=== PATIENT | male | born 1940 | race Caucasian/White ===

== ENCOUNTER 2024-09-29 01:39 | Emergency (ER) | payer MEDICARE, SELFPAY ==
[2024-09-29 01:40] VITALS: BMI 27.1
[2024-09-29 01:50] VITALS: BP 133/52; PULSE 68; RESP 19; TEMP 37.1; O2SAT 96
--- NOTE | 2024-09-29 02:23 | XR_ITS ---
Examination: CT pelvis left hip, without contrast. 2-D sagittal reconstructions. 2-D coronal reconstructions. 3-D reconstructions. Date and time of exam:September 29, 2024 0258 hours INDICATIONS: Left hip pain beginning one month ago CTDI: vol (mGy):8.25 DLP: (mGycm):273 Technique: Multiple 1.25 mm axial sections of the pelvis left hip have been obtained. 2-D sagittal and coronal reconstructions have been obtained. 3-D reconstructions have been obtained. Low dose protocols were performed. One or more of the following dose reduction techniques were used; automated exposure control, adjustment of the mA and/or KV according to patient size, use of iterative reconstruction technique. Findings: Bones of the pelvis intact including acetabular regions and anterior rami No hip fractures or hip dislocations Moderate bilateral hip osteoarthritis Marked prostatomegaly, transverse dimension 8 cm Left inguinal hernia contains bowel but no incarcerated bowel IMPRESSION: Moderate bilateral hip osteoarthritis Massive prostatomegaly Left inguinal hernia containing small bowel but no incarcerated bowel
--- NOTE | 2024-09-29 02:23 | XR_ITS ---
Examination: CT lumbar spine, without contrast. 2-D sagittal reconstructions. 2-D coronal reconstructions. 3-D reconstructions. Date and time of exam: September 29, 2024, 0305 hours INDICATIONS: Back pain beginning one month ago CTDI: vol (mGy):23.1 DLP: (mGycm):726 Technique: Multiple 1.25 mm axial sections of the lumbar spine without intravenous contrast have been obtained. 2-D sagittal and coronal reconstructions have been obtained. 3-D reconstructions have been obtained. Low dose protocols were performed. One or more of the following dose reduction techniques were used; automated exposure control, adjustment of the mA and/or KV according to patient size, use of iterative reconstruction technique. Findings: Adequate alignment lumbar vertebral bodies on the lateral view No acute lumbar fracture Advanced disc narrowing L3-L4, L4-L5 L5-S1 3 mm central lumbar disc bulge L4-L5 moderate overall spinal stenosis, 4 mm central lumbar disc bulge facet arthropathy and thickening of the ligamentum flavum with mild bilateral L4 ganglionic compression L3-L4 no disc protrusion L2-L3 no disc protrusion L1-L2 no disc protrusion IMPRESSION: No lumbar fracture. Advanced degenerative disc disease L3-L4, L4-L5 L5-S1 3 mm on the lumbar disc bulge L4-L5 moderate overall spinal stenosis, 4 mm simple lumbar disc bulge and prominent facet arthropathy with mild bilateral L4 ganglionic compression
--- NOTE | 2024-09-29 04:11 | PRELIM_ITS ---
Left hip CT without intravenous contrast (axial images with coronal and sagittal reconstructions). Clinical history: Pain; previous injury Findings: No acute fracture is identified. Joint alignment is normal. Nonobstructed small bowel is present in a left inguinal hernia. Prostate is enlarged, 8 cm in diameter. Lumbar spondylosis. Impression: No acute process. Chronic findings as above. Report Electronically Signed By: Jesu Law 09/29/2024 4:11:05 AM [EST]
--- NOTE | 2024-09-29 04:13 | PRELIM_ITS ---
CT scan of the lumbar spine without contrast (entire l-spine, axial sections with sagittal and coronal reformats). Clinical history: Pain; previous injury Findings: There is no acute lumbar fracture or traumatic subluxation. Diffuse disc space narrowing and spondylosis. Chronic compression fractures of T11 and T12. The paravertebral soft tissues are unremarkable. Impression: No evidence of acute lumbar fracture or traumatic subluxation. Report Electronically Signed By: Jesu Law 09/29/2024 4:13:01 AM [EST]
[2024-09-29 04:54] VITALS: BP 145/67; PULSE 87; RESP 19; TEMP 36.7; O2SAT 99
[2024-09-29] MEDS: CYCLObenzaPRINE 5 MG TABLET PO (05:44)
[2024-09-29] MEDS: ACETAMINOPHEN 500 MG TABLET 1000 MG PO (05:45)
--- NOTE | 2024-09-29 06:09 | PD.EDHIP ---
Lower Extremity Injury RME/HPI General Chief Complaint: Hip Injury/Pain Stated Complaint: LEFT HIP PAIN Time Seen by Provider: 09/29/24 02:23 Arrival date/time: 09/29/24 01:39 83M with history of HTN, TIA, and BPH presents to ED with 1 week of intermittent but worsening L lower back pain. Patient may have injured it several weeks ago, but denies outright falling on it. Patient denies CP, SOB, dysuria/hematuria, N/V, bowel/bladder incontinence, and paresthesia. Pain does not radiate into LLE. Patient does have a known L inguinal hernia that has gotten worse in the past few weeks. Pain is worse with certain movements/positions. Limitations: no limitations Related Data Home Medications ?Medication ?Instructions ?Recorded ?Confirmed amlodipine 5 mg tablet 5 mg PO QDAY 12/16/17 02/06/19 oxybutynin chloride 5 mg tablet 5 mg PO BID 12/16/17 02/06/19 simvastatin 40 mg tablet 40 mg PO QPM 12/16/17 02/06/19 allopurinol 300 mg tablet 300 mg PO QDAY 07/30/18 02/06/19 tamsulosin 0.4 mg capsule 0.4 mg PO QDAY 07/30/18 02/06/19 finasteride 5 mg tablet (Proscar) 5 mg PO QDAY 12/20/18 02/06/19 Previous Rx's ?Medication ?Instructions ?Recorded clopidogrel 75 mg tablet (Plavix) 75 mg PO QDAY #30 tabs 12/17/17 acetaminophen 500 mg capsule 1,000 mg (2 x 500 mg) PO Q6H PRN 09/29/24 pain #30 caps cyclobenzaprine 5 mg tablet 5 mg PO BID PRN muscle spasm #10 09/29/24 tabs oxycodone 5 mg capsule 5 mg PO BID pain 3 days #7 caps 09/29/24 Allergies Allergy/AdvReac Type Severity Reaction Status Date / Time No Known Allergies Allergy Verified 09/21/23 12:51 Review of Systems Review of Systems Systems Reviewed: All systems reviewed, normal except as documented Constitutional Constitutional: Reports system reviewed and no additional complaints, except as documented, Denies fever(s) and Denies headache(s) ENT Ears, Nose, Mouth, and Throat: Denies disequilibrium and Denies headache(s) Cardiovascular Cardiovascular: Reports system reviewed and no additional complaints, except as documented, Denies chest pain and Denies dyspnea Respiratory Respiratory: Reports system reviewed and no additional complaints, except as documented, Denies cough and Denies dyspnea Gastrointestinal Gastrointestinal: Reports system reviewed and no additional complaints, except as documented, Denies abdominal pain, Denies nausea and Denies vomiting Musculoskeletal Musculoskeletal: Reports as per HPI, Reports arthralgias and Reports back pain Neurologic Neurologic: Reports system reviewed and no additional complaints, except as documented, Denies confusion, Denies disequilibrium and Denies headache(s) Psychiatric Psychiatric: Denies confusion Past Medical History Past Medical History NEUROLOGIC: 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) CARDIAC: Positive Cardiac Disorders, Hypercholesterolemia and Hypertension; Negative Congestive Heart Failure RESPIRATORY: Negative Chronic Obstructive Pulmonary Disease (COPD) or Asthma GENITOURINARY: Positive Genitourinary Disorders and Benign Prostatic Hyperplasia; Negative Renal Disease ENDOCRINE: Negative Diabetes Mellitus Type 1 or Diabetes Mellitus Type 2 HEMATOLOGIC: Negative Sickle Cell Disease Family History FAMILY HISTORY: Negative Family Neurologic Problems, Family Psychiatric Problems, Family Respiratory Disorders, Family Cardiac Disorders, Family Gastrointestinal Problems, Family Cancer, Family Surgery or Family Anesthesia Reaction Surgical History SURGICAL: Positive Tonsillectomy Social History SMOKING STATUS: Never smoker SECOND HAND EXPOSURE: No SUBSTANCE USE: does not use ED Exam General Limitations: Present no limitations General appearance: Present alert and in no apparent distress Head Head exam: Present atraumatic Eye Eye exam: Present normal appearance, PERRL and EOMI ENT ENT exam: Present normal exam, normal oropharynx and mucous membranes moist Neck Neck exam: Present normal inspection, full ROM and trachea midline Chest Chest inspection: Present normal inspection and symmetric chest wall rise Respiratory Respiratory exam: Present normal lung sounds bilaterally Cardiovascular Cardiovascular exam: Present regular rate, normal rhythm and normal heart sounds Abdominal Exam Abdominal exam: Present soft and normal bowel sounds Extremities Exam Extremities exam: Present normal inspection and full ROM Back Exam Back exam: Present normal inspection and full ROM Neurological Exam Neurological exam: Present alert, oriented X3 and CN II-XII intact Psychiatric Psychiatric exam: Present normal affect and normal mood Skin Skin exam: Present warm, dry, intact and normal color Course Quality Measures none Orders Category Date Time Status CT hip LT wo con Stat Exams 09/29/24 02:[address] lumbar spine wo con Stat Exams 09/29/24 02:23 Taken Acetaminophen Tab [Tylenol ES Tab] Med 09/29/24 05:37 Discontinued 1,000 mg PO X1 ONE CYCLObenzaPRINE [Flexeril] Med 09/29/24 04:56 Discontinued 5 mg PO X1 ONE Morphine Inj Med 09/29/24 04:56 Discontinued 5 mg IM X1 ONE Vital Signs Vital signs: Vital Signs Temperature 98.8 F 09/29/24 01:50 Pulse Rate 68 09/29/24 01:50 Respiratory Rate 19 09/29/24 01:50 Blood Pressure 133/52 H 09/29/24 01:50 Pulse Oximetry (%) 96 09/29/24 01:50 Oxygen Delivery Method Room Air 09/29/24 01:50 O2 at 96% on RA and WNLs Extremity Injury, Lower MDM Narrative MDM Narrative:: 83M with history of HTN, TIA, and BPH presents to ED with 1 week of intermittent but worsening L lower back pain. Patient may have injured it several weeks ago, but denies outright falling on it. Patient denies CP, SOB, dysuria/hematuria, N/V, bowel/bladder incontinence, and paresthesia. Pain does not radiate into LLE. Patient does have a known L inguinal hernia that has gotten worse in the past few weeks. Pain is worse with certain movements/positions. Physical exam reveals no L hip tenderness, though patient is unable to bear much weight on LLE. No midline back tenderness. Patient is afebrile, calm, and alert. CT reveals no acute abnormalities except for unobstructed small bowel in L inguinal hernia. With grants assistant present, L inguinal hernia was easily reduced, but did not change symptoms. Spoke to attending, Dr. Raphael, who also evaluation the patient and agrees symptoms are likely MSK/nerve-related. Meds and grief counselor given. Patient data External records reviewed:: [facility] previous records Clinical information provided by:: patient Social determinants that could affect healthcare access:: none Patient has the following chronic illnesses:: HTN, TIA, and BPH How is presenting disease/condition affected by chronic disease/condition?: exacerbated by Evaluation data The following diagnostics were reviewed and interpreted by me:: radiology exam(s) Lab and/or radiology exams considered but not ordered:: ordered Interpretation Summary: above Medications / Prescriptions Medications or Prescriptions considered but not ordered:: ordered Medication administrations:: Medication Administration History Discontinued Medications Acetaminophen (Acetaminophen 500 Mg Tablet) 1,000 mg PO X1 ONE Stop: 09/29/24 05:38 Last Admin: 09/29/24 05:45 Dose: 1,000 mg Documented By: EE Cyclobenzaprine HCl (Cyclobenzaprine 5 Mg Tablet) 5 mg PO X1 ONE Stop: 09/29/24 04:57 Last Admin: 09/29/24 05:44 Dose: 5 mg Documented By: EE Morphine Sulfate (Morphine Sulf Inj 10 Mg/Ml Vial) 5 mg IM X1 ONE Stop: 09/29/24 04:57 Last Admin: 09/29/24 05:48 Dose: Not Given Documented By: KESHAWN Non-Admin Reason: Patient Refused above Consultations Consultation(s) initiated? (list below): No Diagnosis Extremity Injury, Lower Differential Diagnosis: ankle sprain and strain, acute internal derangement of knee, fracture of femur, fracture of hip, puncture wound of foot, fracture of toe, ankle fracture and other (back pain) Most likely diagnosis given after review of the tests above:: back pain Admission Indicated Admission indicated?: not indicated Admission Request Was there a request for admission?: No Disposition Plan Disposition Plan: Discharge Discharge Attestation Discharge Attestation: The patient and all family members were given an opportunity to ask questions and understood the discharge instructions. Discharge instructions specifically effects, indications for sooner follow up or return to the emergency department, and the expected course of current diagnosis. Patient condition: Stable Discharge Plan Plan Patient Disposition: HOME (Self Care) Disposition Comment: Stable Prescriptions/Referrals Prescriptions/Med Rec: New cyclobenzaprine 5 mg tablet 5 mg PO BID PRN (Reason: muscle spasm) Qty: 10 0RF acetaminophen 500 mg capsule 1,000 mg PO Q6H PRN (Reason: pain) Qty: 30 0RF oxycodone 5 mg capsule 5 mg PO BID MDD 2 caps 3 Days Qty: 7 0RF No Action finasteride [Proscar] 5 mg tablet 5 mg PO QDAY tamsulosin 0.4 mg Capsule 0.4 mg PO QDAY allopurinol 300 mg Tablet 300 mg PO QDAY amlodipine 5 mg Tablet 5 mg PO QDAY simvastatin 40 mg Tablet 40 mg PO QPM oxybutynin chloride 5 mg Tablet 5 mg PO BID clopidogrel [Plavix] 75 mg Tablet 75 mg PO QDAY Qty: 30 0RF Referrals: Junaid Garibay MD [Primary Care Provider] - In 1 week Problem List Clinical Impression: Back pain Patient/Caregiver Discharge Instructions Education Materials: ED Back Pain (Acute or Chronic) Additional Instructions: Please follow-up with PCP within 24-48 hours and return immediately if symptoms worsen. If problem persists, recommend outpatient PT and/or MRI follow-up. In the meantime, rest, use ice/heat, and/or compression. Print Language: Tajik Stand Alone Forms: Patient Portal Info Letter PA/HARRIET Supervising Physician BRUNILDA/HARRIET Supervising Physician: Dr. Raphael
== END 2024-09-29 05:55 | disposition home or self-care (01) ==
PROVIDERS: Emergency Provider Emergency Medicine; PCP Family Medicine
DX: K40.90 Unilateral inguinal hernia, without obstruction or gangrene, not specified as recurrent (principal); M54.50 Low back pain, unspecified
CPT/HCPCS: 72131; 73700; 99284; J2270; A9270

== ENCOUNTER → 2025-01-30 | Outpatient (CLI) | payer MEDICARE, SELFPAY ==
[2025-01-30 09:19] LABS: Collection Type, Urine Clean Catch
[2025-01-30 09:50] LABS: Basophils # (Auto) 0.0 Thou/mm3 (0.0-0.2); Basophils % (Auto) 0 % (0-2.5); Eosinophils # (Auto) 0.1 Thou/mm3 (0.0-0.5); Eosinophils % (Auto) 1 % (0-10); Hematocrit 41.7 % (41.0-53.0); Hemoglobin 14.0 g/dL (13.5-16.0); Immature Granulocytes Auto 0.03 Thou/mm3 (0.00-0.00); Lymphocytes # (Auto) 1.2 Thou/mm3 (1.0-4.8); Lymphocytes % (Auto) 16 % (10-50); Mean Corpuscular HGB Conc 33.6 g/dl (31.0-37.0); Mean Corpuscular Hemoglobin 31.8 pg (25.0-35.0); Mean Corpuscular Volume 95 fL (80-100); Monocytes # (Auto) 0.5 Thou/mm3 (0.0-0.8); Monocytes % (Auto) 7 % (0-12); Neutrophils # (Auto) 5.7 Thou/mm3 (1.8-7.7); Neutrophils % (Auto) 75 % (37-80); Nucleated Red Blood Cell # 0.00 Thou/mm3 (0.00-0.00); Nucleated Red Blood Cell % 0 /100 WBC (0); Platelet Count 170 Thou/mm3 (140-440); RDW Standard Deviation 44.0 fL (35.1-43.9); Red Blood Count 4.40 Miln/mm3 (4.50-5.90); White Blood Count 7.6 Thou/mm3 (3.8-10.6)
[2025-01-30 10:02] LABS: Prostate Specific Antigen 5.57 ng/mL (0-4.00)
[2025-01-30 10:03] LABS: Bilirubin,Urine Negative (Negative); Blood,Urine Negative (Negative); Clarity,Urine Clear (Clear/Hazy); Color,Urine Yellow (Lt Yel-Yel); Culture Indicated,Urine Not Indicated; Glucose, Urine Negative (Negative); Ketones,Urine Negative (Negative); Leukocyte Esterase,Urine Negative (Negative); Nitrite,Urine Negative (Negative); PH,Urine 5.5 (5.0-7.0); Protein,Urine Negative (Neg - Trace); RBC,Urine 1 /hpf (0-3); Specific Gravity,Urine 1.016 (1.001-1.035); Squamous Epithelial Cell,Urine < 1 /hpf (0-5); Urobilinogen,Urine Negative mg/dL (0.0-1.0); WBC,Urine 1 /hpf (0-5)
[2025-01-30 10:13] LABS: Alanine Aminotransferase 8 U/L (10-49); Albumin, Serum 4.2 gm/dL (3.4-4.8); Albumin/Globulin Ratio 2.6 (1.2-2.2); Alkaline Phosphatase 85 U/L (46-116); Anion Gap 7 (7-16); Aspartate Amino Transferase 12 U/L (0-34); BUN/Creatinine Ratio 16 Ratio (12-20); Bilirubin,Total 0.7 mg/dL (0.3-1.2); Blood Urea Nitrogen 18 mg/dL (9-23); Calcium 9.9 mg/dL (8.3-10.6); Calcium (Corrected) 9.9 mg/dL (8.5-10.1); Carbon Dioxide 26.8 mMol/L (20.0-31.0); Cardiac Risk Estimate 3.1 RATIO (4.0-6.7); Chloride 107 mMol/L (98-107); Cholesterol 156 mg/dL (132-200); Creatinine (Component) 1.1 mg/dL (0.6-1.3); Globulin 1.6 gm/dL (2.3-3.5); Glucose 92 mg/dL (74-106); HDL Cholesterol 50 mg/dL (40-60); LDL Cholesterol,Calculated 97 mg/dL (0-130); Osmolality,Calculated 283 (275-295); Potassium 4.0 mMol/L (3.4-5.1); Sodium 141 mMol/L (136-145); Thyroid Stimulating Hormone 1.11 uIU/mL (0.55-4.78); Total Protein 5.8 gm/dL (5.7-8.2); Triglycerides 46 mg/dL (30-150); eGFR > 60 See Note
[2025-01-30 10:27] LABS: Vitamin B12 519 pg/mL (211-911)
== END | disposition home or self-care (01) ==
PROVIDERS: PCP Family Medicine; Referring Provider Physician Assistant; Visit Provider Physician Assistant
DX: I10 Essential (primary) hypertension (principal); E55.9 Vitamin D deficiency, unspecified; E66.3 Overweight; E78.5 Hyperlipidemia, unspecified; I63.40 Cerebral infarction due to embolism of unspecified cerebral artery; M10.9 Gout, unspecified; N32.81 Overactive bladder; N40.1 Benign prostatic hyperplasia with lower urinary tract symptoms; R97.20 Elevated prostate specific antigen [PSA]
CPT/HCPCS: 36415; 80053; 80061; 81001; 82607; 84153; 84443; 85025

== ENCOUNTER 2025-02-08 09:24 | Inpatient (IN) | payer MEDICARE, SELFPAY ==
[2025-02-08] VITALS (12 sets, daily range): BP systolic 118–152; BP diastolic 66–77; PULSE 52–67; RESP 15–98; TEMP 36.2–37.2; O2SAT 92–99; BMI 28.5
--- NOTE | 2025-02-08 | XR_ITS ---
Examinations: MRI Brain without intravenous contrast. MRA brain without intravenous contrast. MRA carotids without intravenous contrast 3-D vascular reconstructions Date and time of exam: February 08, 2025, [address] stroke alert this morning, onset focal neurologic deficit including slurred speech Technique: Multiple axial and sagittal images of the brain have been obtained MRA brain carotid images without contrast obtained, including 3-D postprocessing, vascular maximum intensity projection images Findings: Sellaturcica is not enlarged. The optic chiasm and infundibular stalk are not remarkable. Prepontine and interpeduncular cisterns are not enlarged. No localized enlargement of the medulla or jairo. Fourth ventricle and cerebellar tonsils normal in position. Subacute hemorrhage is not seen. Fourth ventricle is midline. Mass in the cerebellopontine angle region is not evident. 7th and 8th nerve complexes exhibits symmetry. Globes are symmetrical with no retro-orbital mass. Increased white matter signal prominent in the frontal lobes with encephalomalacia Diffusion-weighted images demonstrate no focus of restricted diffusion Mass-effect upon the ventricular system is not identified. MRA brain images no large vessel occlusions Impression: Negative for acute hemorrhage mass effect or midline shift No acute infarct Prominent chronic microvascular white matter change including bifrontal encephalomalacia
--- NOTE | 2025-02-08 09:35 | XR_ITS ---
Examination: CTA carotids with intravenous contrast CTA brain, head with intravenous contrast. 2-D sagittal, coronal reconstructions. 3-D reconstructions. Exam date and time: February 08, 2025, 1003 hours INDICATIONS: Stroke alert, onset focal neurologic deficit today, including slurred speech CTDI: vol (mGy) 23.6 DLP: (mGycm) 470 Technique: Multiple CTA axial brain, head carotid images post intravenous contrast injection 75 cc, [id number]. 2-D sagittal, coronal reconstructions. 3-D reconstructions, 3-D post processing including vascular maximum intensity projection images. Low dose protocols were performed. One or more of the following dose reduction techniques were used; automated exposure control, adjustment of the mA and/or KV according to patient size, use of iterative reconstruction technique. Findings: Bilateral thyromegaly with tiny bilateral subcentimeter thyroid nodules No significant common carotid carotid bifurcation or internal carotid artery stenoses Dominant left vertebral artery in the neck, no vertebral artery stenoses Intracranial vertebral arteries intact Basilar artery posterior cerebral branches fill with no large vessel occlusions Juxtasellar or supracondylar portions internal carotid arteries M1 segments middle cerebral arteries middle cerebral artery trifurcation vessels anterior cerebral arteries fill with no large vessel occlusions. IMPRESSION: No significant neck arterial stenoses No cerebral large vessel arterial occlusions.
--- NOTE | 2025-02-08 09:35 | XR_ITS ---
Examination: CT brain head without contrast. 2-D sagittal coronal reconstructions Date and time of exam:February 08, 2025, 0943 hours INDICATIONS: Stroke alert, onset slurred speech beginning this morning COMPARISON: April 05, 2024 CTDI: vol (mGy):55 DLP: (mGycm):1164 Technique: Multiple CT axial sections of the brain have been obtained, 5 mm slice thickness. Contrast has not been administered. 2-D sagittal, coronal reconstructions have been obtained Low dose protocols were performed. One or more of the following dose reduction techniques were used; automated exposure control, adjustment of the mA and/or KV according to patient size, use of iterative reconstruction technique. Findings: No significant ventricular enlargement. Again noted bifrontal encephalomalacia Intra-axial or extra-axial hemorrhage density is not seen. No mass effect or midline shift Basal cisterns are not remarkable. Fourth ventricle is midline. Cranial vault intact. Impression: No interval acute hemorrhage, mass effect or midline shift
[2025-02-08 09:46] LABS: Basophils # (Auto) 0.0 Thou/mm3 (0.0-0.2); Basophils % (Auto) 0 % (0-2.5); Eosinophils # (Auto) 0.1 Thou/mm3 (0.0-0.5); Eosinophils % (Auto) 1 % (0-10); Hematocrit 44.0 % (41.0-53.0); Hemoglobin 15.0 g/dL (13.5-16.0); Immature Granulocytes Auto 0.03 Thou/mm3 (0.00-0.00); Lymphocytes # (Auto) 1.3 Thou/mm3 (1.0-4.8); Lymphocytes % (Auto) 14 % (10-50); Mean Corpuscular HGB Conc 34.1 g/dl (31.0-37.0); Mean Corpuscular Hemoglobin 32.6 pg (25.0-35.0); Mean Corpuscular Volume 96 fL (80-100); Monocytes # (Auto) 0.6 Thou/mm3 (0.0-0.8); Monocytes % (Auto) 7 % (0-12); Neutrophils # (Auto) 7.1 Thou/mm3 (1.8-7.7); Neutrophils % (Auto) 77 % (37-80); Nucleated Red Blood Cell # 0.00 Thou/mm3 (0.00-0.00); Nucleated Red Blood Cell % 0 /100 WBC (0); Platelet Count 206 Thou/mm3 (140-440); RDW Standard Deviation 44.3 fL (35.1-43.9); Red Blood Count 4.60 Miln/mm3 (4.50-5.90); White Blood Count 9.2 Thou/mm3 (3.8-10.6)
--- NOTE | 2025-02-08 09:55 | PD.EDNEURO ---
Neuro Symptoms Deficit-RME/HPI General Chief Complaint: Neuro Symptoms/Deficit Stated Complaint: SLURRED SPEECH SINCE 30 MINS AGO Time Seen by Provider: 02/08/25 09:34 Arrival date/time: 02/08/25 09:24 Limitations: no limitations RME / HPI RME / HPI Narrative: 84 year old male with history of TIAs, hypertension presents to the ED brought in by for evaluation of aphasia beginning this morning. reports the patient woke up at 08:00 AM today and was at his usual state of health. Reportedly went out to feed the horses and once he returned back inside at ~ 08:20 AM, noted the aphasia. Described the patient speaking a foreign language . states the patient has experienced 4 other TIAs that usually resolve after 1 hour. However, symptoms today are prolonged, prompting ED visit. Patient states since arriving to the ED his speech is improved. Denies falling, head injury/trauma, LOC, double vision, unilateral weakness, or changes in gait. Denies fevers, chills, cough, shortness of breath, abdominal pain, n/v/d, or urinary symptoms. Related Data Home Medications ?Medication ?Instructions ?Recorded ?Confirmed amlodipine 5 mg tablet 5 mg PO QDAY 12/16/17 02/06/19 oxybutynin chloride 5 mg tablet 5 mg PO BID 12/16/17 02/06/19 simvastatin 40 mg tablet 40 mg PO QPM 12/16/17 02/06/19 allopurinol 300 mg tablet 300 mg PO QDAY 07/30/18 02/06/19 tamsulosin 0.4 mg capsule 0.4 mg PO QDAY 07/30/18 02/06/19 finasteride 5 mg tablet (Proscar) 5 mg PO QDAY 12/20/18 02/06/19 Previous Rx's ?Medication ?Instructions ?Recorded clopidogrel 75 mg tablet (Plavix) 75 mg PO QDAY #30 tabs 12/17/17 acetaminophen 500 mg capsule 1,000 mg (2 x 500 mg) PO Q6H PRN 09/29/24 pain #30 caps cyclobenzaprine 5 mg tablet 5 mg PO BID PRN muscle spasm #10 09/29/24 tabs Allergies Allergy/AdvReac Type Severity Reaction Status Date / Time No Known Allergies Allergy Verified 02/08/25 09:26 Review of Systems Review of Systems Systems Reviewed: All systems reviewed, normal except as documented Past Medical History Past Medical History NEUROLOGIC: 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) CARDIAC: Positive Cardiac Disorders, Hypercholesterolemia and Hypertension RESPIRATORY: Negative Chronic Obstructive Pulmonary Disease (COPD) or Asthma GENITOURINARY: Positive Genitourinary Disorders and Benign Prostatic Hyperplasia ENDOCRINE: Negative Diabetes Mellitus Type 1 or Diabetes Mellitus Type 2 HEMATOLOGIC: Negative Sickle Cell Disease Family History FAMILY HISTORY: Negative Family Neurologic Problems, Family Psychiatric Problems, Family Respiratory Disorders, Family Cardiac Disorders, Family Gastrointestinal Problems, Family Cancer, Family Surgery or Family Anesthesia Reaction Surgical History SURGICAL: Positive Tonsillectomy Social History SMOKING STATUS: Never smoker SECOND HAND EXPOSURE: No SUBSTANCE USE: does not use ED Exam General Limitations: Present no limitations General appearance: Present alert and in no apparent distress Head Head exam: Present atraumatic, normocephalic and normal inspection Eye Eye exam: Present normal appearance, PERRL and EOMI ENT ENT exam: Present normal exam, normal oropharynx and mucous membranes moist Neck Neck exam: Present normal inspection, full ROM and trachea midline Chest Chest inspection: Present normal inspection and symmetric chest wall rise Respiratory Respiratory exam: Present normal lung sounds bilaterally Cardiovascular Cardiovascular exam: Present regular rate, normal rhythm and normal heart sounds Abdominal Exam Abdominal exam: Present soft and normal bowel sounds Extremities Exam Extremities exam: Present normal inspection and full ROM Back Exam Back exam: Present normal inspection and full ROM Neurological Exam Neurological exam: Present alert, oriented X3 and other (word findings difficulty and mild expressive aphasia that improved while I was in the room, Speech was slow and impaired, no focal deficits, muscle strength 5/5 upper and lower extremities, no facial droop or abnormality with facial muscles ) Psychiatric Psychiatric exam: Present normal affect and normal mood Skin Skin exam: Present warm, dry, intact and normal color Course Quality Measures Suspected type of Stroke: TIA Last known well (date): 02/08/25 Last known well (time): 08:00 Tenecteplase given: Reason(s) TPA not given: Stroke severity too mild (non-disabling) not given stroke Orders Category Date Time Status Bedside Blood Glucose NOW Care 02/08/25 09:35 Active COVID-19 Screening Questionnaire NOW Care 02/08/25 12:00 Active COVID-19 Screening Questionnaire NOW Care 02/08/25 12:50 Active Vp Mobile Products NOW Care 02/08/25 09:35 Active Continuous Pulse Oximetry NOW Care 02/08/25 09:35 Completed Decision to Admit X1 Care 02/08/25 12:50 Active EKG (ED ONLY) *Do not use* NOW Care 02/08/25 11:55 Completed Insert IV NOW Care 02/08/25 09:35 Active NIH Stroke Scale [id number],QSHIFT Care 02/08/25 10:16 Active NIH Stroke Scale now Care 02/08/25 09:35 Active NPO NOW Care 02/08/25 09:35 Active Neuro Check Q15MIN Care 02/08/25 09:35 Active Nurse Swallow Screen x1 Care 02/08/25 09:35 Active Consult to Neurology / Tele-Neurology Routine Cons 02/08/25 09:[address] angio stroke protocol Stat Exams 02/08/25 09:[address] stroke protocol Stat Exams 02/08/25 09:35 Completed EKG (ED Only) Stat Exams 02/08/25 11:55 Draft Alcohol, Blood Medical Stat Lab 02/08/25 09:38 Completed B-Type Natriuretic Peptide Stat Lab 02/08/25 09:38 Completed CBC Stat Lab 02/08/25 09:38 Completed Comprehensive Metabolic Panel Stat Lab 02/08/25 09:38 Completed Drug Screen,Urine Stat Lab 02/08/25 12:43 Completed Magnesium Stat Lab 02/08/25 09:38 Completed Partial Thromboplastin Time Stat Lab 02/08/25 09:38 Completed Prothrombin Time with INR Stat Lab 02/08/25 09:38 Completed Troponin I Stat Lab 02/08/25 09:38 Completed Urinalysis Stat Lab 02/08/25 12:43 Completed Urine Culture Stat Lab 02/08/25 12:38 Received Aspirin Med 02/08/25 12:50 Discontinued 325 mg PO X1 ONE Labetalol IV [Trandate IV] Med 02/08/25 10:01 Active 10 mg IVP PRNMRX1 PRN Labetalol IV [Trandate IV] Med 02/08/25 10:01 Active 10 mg IVP PRNMRX1 PRN Nicardipine/Ns 20Mg Ivpb [Cardene Ivpb] Med 02/08/25 10:01 Discontinued 20 mg in 200 ml IV 5 mg/hr Sodium Chloride 0.9% 1000 ml [Ns] 1,000 ml Med 02/08/25 09:45 Active IV Q10H Tenecteplase Inj [TNKase Inj] Med 02/08/25 10:01 Discontinued 21.3 mg IV X1 ONE Oxygen Delivery NOW RT 02/08/25 09:35 Active Vital Signs Vital signs: Vital Signs Temperature 99.0 F 02/08/25 09:25 Pulse Rate 67 02/08/25 09:25 Respiratory Rate 17 02/08/25 09:25 Blood Pressure 118/70 02/08/25 09:25 Pulse Oximetry (%) 95 02/08/25 09:25 Oxygen Delivery Method Room Air 02/08/25 09:25 Pulse ox is 95% on room air which is adequate. Neuro Symptoms / Deficit MDM Narrative MDM Narrative:: Adri Mc am scribing for and in the presence of Dr. Hastings. Patient data External records reviewed:: [facility] previous records (I reviewed ED visit on 09/29/2024 ) Clinical information provided by:: patient and spouse Social determinants that could affect healthcare access:: none Patient has the following chronic illnesses:: HTN, TIAs How is presenting disease/condition affected by chronic disease/condition?: exacerbated by Evaluation data The following diagnostics were reviewed and interpreted by me:: lab results, radiology exam(s) and EKG tracing(s) (EKG @ 12:03 PM. Sinus bradycardia with first degree AV block, rate 55, no STEMI. ) Lab and/or radiology exams considered but not ordered:: None Interpretation Summary: Ordering Physician: Dom Hastings MD Date of Service: 02/08/25 Procedure(s): CT stroke protocol Accession Number(s): [id number] cc: Dom Hastings MD; Randolph Champion MD~ Examination: CT brain head without contrast. 2-D sagittal coronal reconstructions Date and time of exam:February 08, 2025, 0943 hours INDICATIONS: Stroke alert, onset slurred speech beginning this morning COMPARISON: April 05, 2024 CTDI: vol (mGy):55 DLP: (mGycm):1164 Technique: Multiple CT axial sections of the brain have been obtained, 5 mm slice thickness. Contrast has not been administered. 2-D sagittal, coronal reconstructions have been obtained Low dose protocols were performed. One or more of the following dose reduction techniques were used; automated exposure control, adjustment of the mA and/or KV according to patient size, use of iterative reconstruction technique. Findings: No significant ventricular enlargement. Again noted bifrontal encephalomalacia Intra-axial or extra-axial hemorrhage density is not seen. No mass effect or midline shift Basal cisterns are not remarkable. Fourth ventricle is midline. Cranial vault intact. Impression: No interval acute hemorrhage, mass effect or midline shift Dictated By: Randolph Champion MD Signed By: <Electronically signed by Randolph Champion MD in OV> 02/08/25 0947 Ordering Physician: Dmo Hastings MD Date of Service: 02/08/25 Procedure(s): CT angio stroke protocol Accession Number(s): [id number] cc: Dom Hastings MD; Randolph Champion MD~ Examination: CTA carotids with intravenous contrast CTA brain, head with intravenous contrast. 2-D sagittal, coronal reconstructions. 3-D reconstructions. Exam date and time: February 08, 2025, 1003 hours INDICATIONS: Stroke alert, onset focal neurologic deficit today, including slurred speech CTDI: vol (mGy) 23.6 DLP: (mGycm) 470 Technique: Multiple CTA axial brain, head carotid images post intravenous contrast injection 75 cc, [id number]. 2-D sagittal, coronal reconstructions. 3-D reconstructions, 3-D post processing including vascular maximum intensity projection images. Low dose protocols were performed. One or more of the following dose reduction techniques were used; automated exposure control, adjustment of the mA and/or KV according to patient size, use of iterative reconstruction technique. Findings: Bilateral thyromegaly with tiny bilateral subcentimeter thyroid nodules No significant common carotid carotid bifurcation or internal carotid artery stenoses Dominant left vertebral artery in the neck, no vertebral artery stenoses Intracranial vertebral arteries intact Basilar artery posterior cerebral branches fill with no large vessel occlusions Juxtasellar or supracondylar portions internal carotid arteries M1 segments middle cerebral arteries middle cerebral artery trifurcation vessels anterior cerebral arteries fill with no large vessel occlusions. IMPRESSION: No significant neck arterial stenoses No cerebral large vessel arterial occlusions. Dictated By: Randolph Champion MD Signed By: <Electronically signed by Randolph Champion MD in OV> 02/08/25 1028 Medications / Prescriptions Medications or Prescriptions considered but not ordered:: None Medication administrations:: Medication Administration History Acetaminophen (Acetaminophen 325 Mg Tablet) 650 mg PO Q6H PRN PRN Reason: Fever >101.5 and pain 1-3 Stop: 03/10/25 13:05 Aspirin (Aspirin Ec 81 Mg Tabec) 81 mg PO QDAY [facility] Stop: 03/11/25 08:59 Atorvastatin Calcium (Atorvastatin Calcium 20 Mg Tablet) 40 mg PO HS [facility] Stop: 03/10/25 20:59 Clopidogrel Bisulfate (Clopidogrel Bisulfate 75 Mg Tablet) 75 mg PO QDAY [facility] Stop: 03/10/25 13:29 Last Admin: 02/08/25 14:00 Dose: 75 mg Documented By: BY Finasteride (Finasteride 5 Mg Tablet) 5 mg PO QDAY [facility] Stop: 03/11/25 08:59 Heparin Sodium (Porcine) (Heparin Sod Inj 5000 Unit/Ml Vial) 5,000 unit SC Q12HR [facility] Stop: 02/22/25 20:59 Sodium Chloride (Ns) 1,000 mls @ 100 mls/hr IV Q10H [facility] Stop: 03/10/25 09:44 Last Admin: 02/08/25 10:30 Dose: 100 mls/hr Documented By: KM Magnesium Sulfate (Magnesium Sulfate Ivpb) 4 gm in 50 mls @ 12.5 mls/hr IV X1 ONE Stop: 02/08/25 17:30 Last Admin: 02/08/25 14:00 Dose: 12.5 mls/hr Documented By: BY Labetalol HCl (Labetalol Inj 5 Mg/Ml Vial 20 Ml) 10 mg IVP PRNMRX1 PRN PRN Reason: SBP > 185 mmHg and/or DBP > 110 Labetalol HCl (Labetalol Inj 5 Mg/Ml Vial 20 Ml) 10 mg IVP PRNMRX1 PRN PRN Reason: SBP > 180 mmHg or DBP > 105 Oxybutynin Chloride (Oxybutynin Chlor 5 Mg Tablet) 5 mg PO BID [facility] Stop: 03/10/25 20:59 Sennosides (Senna Tablet) 1 tab PO QDAY [facility]; Protocol Stop: 03/11/25 08:59 Tamsulosin HCl (Tamsulosin Hcl 0.4 Mg Capsule) 0.4 mg PO QDAY [facility] Stop: 03/11/25 08:59 Discontinued Medications Aspirin (Aspirin 325 Mg Tablet) 325 mg PO X1 ONE Stop: 02/08/25 12:51 Last Admin: 02/08/25 13:01 Dose: 325 mg Documented By: BY Nicardipine/Sodium Chloride (Cardene Ivpb) 20 mg in 200 mls @ 50 mls/hr IV .Q4H PRN; Protocol PRN Reason: Per Nicardipine Stroke Protocol Stop: 03/10/25 10:00 Tenecteplase (Tenecteplase Inj 50 Mg Vial) 21.3 mg 0.25 mg/kg (21.3 mg) IV X1 ONE Stop: 02/08/25 10:02 Last Admin: 02/08/25 10:26 Dose: Not Given Documented By: KM Non-Admin Reason: Cancelled by Provider See above Consultations Consultation(s) initiated? (list below): Yes Consultation #1 (Physician, Specialty, Details): I spoke with teleneurologist Dr. Marie Jean. Initially advised giving TNK however patients symptoms improved and we agreed on holding off thrombolytics for now. Recommends Aspirin, Plavix, Q1H neuro checks for the first 4-6 hours. Consultation #2 (Physician, Specialty, Details): I spoke with hospitalist team B regarding admission. Diagnosis Neuro Differential Diagnosis: subarachnoid hemorrhage, cerebrovascular accident and transient cerebral ischemia Most likely diagnosis given after review of the tests above:: TIA vs CVA Admission Indicated Admission indicated?: indicated Admission Request Was there a request for admission?: Yes Admission Attestation Admission request attestation: Discussed case with [] from Hospitalist service regarding admission. Discussed patients ED course, exam findings, labs, and radiology results. The Hospitalist [agrees,declines] to accept the patient for admission. Disposition Plan Disposition Plan: Admit Critical Care Time Critical Care Time Critical Care Time: Yes Total Critical Care Time (min.): 45 Attestation: The high probability of sudden, clinically significant deterioration in the patient's condition required the highest level of my preparedness to intervene urgently. The services I provided to this patient were to treat and/or prevent clinically significant deterioration. Services included the following: chart data review, reviewing nursing notes and/or old charts, documentation time, independent consultant collaboration regarding findings and treatment options, medication orders and management, direct patient care, vital sign assessments and ordering, interpreting and reviewing diagnostic studies and lab tests. Aggregate critical care time includes only time during which I was engaged in work directly related to the patient's care, as described above, whether at bedside or elsewhere in the Emergency Department. It did not include time spent performing other reported procedures or the services of residents, students, nurses or physician assistants. Discharge Plan Plan Patient Disposition: Admit Acute Care w/in Hospital Problem List Clinical Impression: TIA (transient ischemic attack)
--- NOTE | 2025-02-08 10:10 | PC.NURSE ---
Patient to ER room 3, Teleneurologist, Dr. Salazar on video speaking with patient and regarding TNKase administration, patient at baseline per at this time.
[2025-02-08 10:15] LABS: INR 1.0 (0.9-1.3); Partial Thromboplastin Time 26.2 Seconds (22.0-36.0); Prothrombin Time 11.1 Seconds (9.0-12.2)
[2025-02-08 10:22] LABS: Alanine Aminotransferase 7 U/L (10-49); Albumin, Serum 4.4 gm/dL (3.4-4.8); Albumin/Globulin Ratio 2.6 (1.2-2.2); Alcohol, Blood Medical < 3.0 mg/dL (0-10.0); Alkaline Phosphatase 88 U/L (46-116); Anion Gap 10 (7-16); Aspartate Amino Transferase 10 U/L (0-34); BUN/Creatinine Ratio 10 Ratio (12-20); Bilirubin,Total 0.6 mg/dL (0.3-1.2); Blood Urea Nitrogen 13 mg/dL (9-23); Calcium 10.0 mg/dL (8.3-10.6); Calcium (Corrected) 10.0 mg/dL (8.5-10.1); Carbon Dioxide 25.4 mMol/L (20.0-31.0); Chloride 105 mMol/L (98-107); Creatinine (Component) 1.3 mg/dL (0.6-1.3); Estimated Creatinine Clearance 46.5 mL/min (>60); Globulin 1.7 gm/dL (2.3-3.5); Glucose 101 mg/dL (74-106); Magnesium 1.8 mg/dL (1.6-2.6); Osmolality,Calculated 279 (275-295); Potassium 4.3 mMol/L (3.4-5.1); Sodium 140 mMol/L (136-145); Total Protein 6.1 gm/dL (5.7-8.2); Troponin I < 0.020 ng/mL (0.0-0.045); eGFR 55 See Note
[2025-02-08 10:23] LABS: B-Type Natriuretic Peptide 21 pg/mL (0-100)
--- NOTE | 2025-02-08 10:25 | PC.NURSE ---
Per Dr. Marie Jean, telenuerologist, no TNKASE to be given at this time, patient and agree.
[2025-02-08] MEDS: SODIUM CHLORIDE 0.9% 1000 ML 1,000 ML 100 ML IV ×2 (10:30→20:27)
--- NOTE | 2025-02-08 10:47 | PD.TNEURO ---
Tele Neuro Consultation Consultation Date 02/08/25 Most Recent Vital Signs Last Vital Signs Temp 99.0 F 02/08/25 09:25 Pulse 62 02/08/25 10:21 Resp 16 02/08/25 10:21 BP 141/77 H 02/08/25 10:21 Pulse Ox 94 L 02/08/25 10:21 O2 Del Method Room Air 02/08/25 10:21 Laboratory-Coagulation Panel PT 11.1 Seconds (9.0-12.2) 02/08/25 09:38 INR 1.0 (0.9-1.3) 02/08/25 09:38 APTT 26.2 Seconds (22.0-36.0) 02/08/25 09:38 Consultation Narrative [facility] Patient Name:???REID POLLOCK Date of :???1940 Identification Number:??? Date of Service:???02/08/2025 09:34:47 Diagnosis:?G45.9 - Transient cerebral ischemic attack, unspecified Impression: ?84yoM hx of HTN, Gout, TIA x5 present with sudden onset word finding difficulty. CT head neg for acute finding. CTA head/neck neg for significant stenoses or occlusion. On initial exam patient was able to name, repeat, and read. However when it comes to describing picture of event, he has more prominent signs of difficulty finding the words. ? ?Contraindication for thrombolytics reviewed with , none reported. Discussed risk and benefit of IV thrombolytic, including risks of 3-6 % hemorrhagic complication. Inform the patient that thrombolytics medicine is time sensitive and may not be candidate at later time. The patient and demonstrated understanding and agreed to thrombolytics. ? ?After patient was taken from CT back to the ED, repeat language assessment was done. Patient's speech was notably more fluent than earlier in the CT. Asked patient to talk about different topics, including his travel to [place] and his hobby scuba diving, he was able to give fluent answers. Patient and said h is highly educated and at time he gets patches where he cannot think of the more sophisticate word, which is frustrating. However with the improvement in the exam that he is able to communicate, though not completely back to baseline, is does not appear disabling, I informed the and patient that thrombolytics risk is likely outweighs the benefit base on his current exam. After prolong discussion with patient and , they agreed on holding off thrombolytics for now. ? ? said previous TIA has all been similar presentation affecting his speech. With unremarkable CTA head/neck other DDx includes seizure, encephalopathy due to other etiology, primary cognitive disorder affecting language (ie primary progressive aphasia), etc. ? ?Recommendation ?- Continue DAPT. One time dose Aspirin 3235mg today and back to 81mg tomorrow, continue Plavix 75mg. ?- Permissive HTN for 24hr, HOB flat, give IVF to encourage perfusion of the brain ?- Neuro check q1h for the first 4-6 hours, can space out to q4h afterward. If patient has significant worsening of speech within the thrombolytics window, recommend activate another stroke alert to evaluate if he might be a thrombolytics candidate. ?- MR brain w/o ?- Routine EEG ?- Lipid panel (Goal LDL <70) ?- HgA1c (goal <7%) ?- TTE ?- Workup for toxic/metabolic/infectious cause. ?- PT/OT/ST eval ? Our recommendations are outlined below. Recommendations: ? Stroke/Telemetry Floor ? Neuro Checks (Q1) ? Bedside Swallow Eval ? DVT Prophylaxis ? IV Fluids, Normal Saline ? Head of Bed 30 Degrees ? Euglycemia and Avoid Hyperthermia (PRN Acetaminophen) ? Antihypertensives PRN if Blood pressure is greater than 220/120 or there is a concern for End organ damage/contraindications for permissive HTN. If blood pressure is greater than 220/120 give labetalol PO or IV or Vasotec IV with a goal of 15% reduction in BP during the first 24 hours. Sign Out: ? Discussed with Emergency Department Provider Advanced Imaging: CTA Head and Neck Completed. LVO:No Patient is not a candidate for DMITRI Metrics: Last Known Well: 02/08/2025 08:00:00 Dispatch Time: 02/08/2025 09:34:47 Arrival Time: 02/08/2025 09:24:00 Initial Response Time: 02/08/2025 09:38:03Symptoms: slurred speech . Initial patient interaction: 02/08/2025 09:38:41 NIHSS Assessment Completed: 02/08/2025 09:55:11Patient is not a candidate for Thrombolytic. Thrombolytic Medical Decision: 02/08/2025 10:25:11Patient was not deemed candidate for Thrombolytic because of following reasons: Resolved symptoms . Stroke severity too mild (non-disabling) . CT Head: I personally reviewed all the CT images that were available to me and it showed: no hemorrhage Primary Provider Notified of Diagnostic Impression and Management Plan on: 02/08/2025 10:30:46 History of Present Illness:Patient is a 84 year old Male. Patient was brought by private transportation with symptoms of slurred speech . confirmed that patient woke up in the morning and last talk to him normally around 8AM. Patient went out to atttend to the horse, came back sat down. When he tried to ask a question he noticed trouble talking. said patient was saying nonsensical words. He had history of five previous TIA, last one was a year ago. About 4 years ago he did received thrombolytics due to worsening speech after initial assessment. History of skull fracture 10 years ago without intracranial hemorrhage. Per : Denies history of stroke Denies history of intracranial hemorrhage Denies bleeding concerning in the past 3 weeks Denies taking blood thinner Denies recent surgery in past 3 month. Past Medical History: ?Hypertension Other PMH:? HTN, Gout, TIA x5 Medications: No Anticoagulant use? Antiplatelet use:?Yes?aspirin 81mg, Plavix 75mg Reviewed EMR for current medications Allergies:? Reviewed,NKDA Social History: Smoking: No Alcohol Use: No Family History: There is no family history of premature cerebrovascular disease pertinent to this consultation ROS : 14 Points Review of Systems was performed and was negative except mentioned in HPI. Past Surgical History: There Is No Surgical History Contributory To Today?s Visit Examination: BP(143/73),?Pulse(64),?Blood Glucose(109) 1A: Level of Consciousness - Alert; keenly responsive?+ 0 1B: Ask Month and Age - 1 Question Right?+ 1 1C: Blink Eyes & Squeeze Hands - Performs Both Tasks?+ 0 2: Test Horizontal Extraocular Movements - Normal?+ 0 3: Test Visual Rodriguez - No Visual Loss?+ 0 4: Test Facial Palsy (Use Grimace if Obtunded) - Normal symmetry?+ 0 5A: Test Left Arm Motor Drift - No Drift for 10 Seconds?+ 0 5B: Test Right Arm Motor Drift - No Drift for 10 Seconds?+ 0 6A: Test Left Leg Motor Drift - No Drift for 5 Seconds?+ 0 6B: Test Right Leg Motor Drift - No Drift for 5 Seconds?+ 0 7: Test Limb Ataxia (FNF/Heel-Goddard) - No Ataxia?+ 0 8: Test Sensation - Normal; No sensory loss?+ 0 9: Test Language/Aphasia - Mild-Moderate Aphasia: Some Obvious Changes, Without Significant Limitation?+ 1 10: Test Dysarthria - Normal?+ 0 11: Test Extinction/Inattention - No abnormality?+ 0 NIHSS Score:?2 NIHSS Free Text :?ambulate independently Pre-Morbid Modified Ruth Scale: 0 Points = No symptoms at all Spoke with :?Dr. Hastings This consult was conducted in real time using interactive audio and video technology. Patient was informed of the technology being used for this visit and agreed to proceed. Patient located in hospital and provider located at home/office setting. Patient is being evaluated for possible acute neurologic impairment and high probability of imminent or life-threatening deterioration. I spent total of 70 minutes providing care to this patient, including time for face to face visit via telemedicine, review of medical records, imaging studies and discussion of findings with providers, the patient and/or family. Dr Marie Jean [facility] For Inpatient follow-up with [facility] physician please call [facility] at . As we are not an outpatient service for any post hospital discharge needs please contact the hospital for assistance. If you have any questions for the [facility] physicians or need to reconsult for clinical or diagnostic changes please contact us via [facility] at . Signature :?Marie Jean
--- NOTE | 2025-02-08 11:55 | EKG_ITS ---
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
[2025-02-08 12:53] LABS: Collection Type, Urine Catheter
[2025-02-08 12:56] LABS: Bilirubin,Urine Negative (Negative); Blood,Urine Negative (Negative); Clarity,Urine Clear (Clear/Hazy); Color,Urine Yellow (Lt Yel-Yel); Glucose, Urine Negative (Negative); Ketones,Urine Negative (Negative); Leukocyte Esterase,Urine Negative (Negative); Nitrite,Urine Negative (Negative); PH,Urine 6.0 (5.0-7.0); Protein,Urine Negative (Neg - Trace); RBC,Urine 1 /hpf (0-3); Specific Gravity,Urine 1.045 (1.001-1.035); Squamous Epithelial Cell,Urine < 1 /hpf (0-5); Urobilinogen,Urine Negative mg/dL (0.0-1.0); WBC,Urine < 1 /hpf (0-5)
[2025-02-08 13:02] LABS: Amphetamine/Methamp Scrn,U Negative (Negative); Barbiturate Screen,Urine Negative (Negative); Benzodiazepines Screen,Urine Negative (Negative); Benzoylecgonine Screen, Ur Negative (Negative); Fentanyl Screen,Urine Negative (Negative); Opiate Screen,Urine Negative (Negative); THC Screen,Urine Negative (Negative)
--- NOTE | 2025-02-08 13:06 | ECHO_ITS ---
Transthoracic Echo Report Ht (in): 68 Wt (lb): 187 Exam Location: Echo Lab Status: Emergency Air Conditioning Supervisor: Abby Nelson Indications: Procedure Performed: BP: 134 / 66 HR: 53 Technical Quality: Technically difficult study MEASUREMENTS (Male / Female) Normal Values 2D ECHO LV Ejection Fraction MOD BP 59.2 % >= 55 % LV Cardiac Index MOD BP 1740.6 cm?/min?m? LV Ejection Fraction MOD 4C 68.0 % LV Cardiac Index MOD 4C 2175.1 cm?/min?m? LV Ejection Fraction 4C AL 69.6 % LV Cardiac Index 4C AL 2349.7 cm?/min?m? LV Ejection Fraction MOD 2C 50.1 % LV Cardiac Index MOD 2C 1238.4 cm?/min?m? LV Ejection Fraction 2C AL 53.7 % LV Cardiac Index 2C AL 1355.2 cm?/min?m? LA Volume Index 20.8 cm?/m? 16 - 28 cm?/m? DOPPLER AV Peak Velocity 146.0 cm/s AV Peak Gradient 8.5 mmHg AV Mean Gradient 5.0 mmHg AV Velocity Time Integral 38.1 cm LVOT Peak Velocity 91.6 cm/s LVOT Peak Gradient 3.4 mmHg LVOT Velocity Time Integral 22.7 cm MV Area PHT 3.6 cm? MR Peak Velocity 372.0 cm/s MR Peak Gradient 55.4 mmHg Mitral E Point Velocity 76.6 cm/s Mitral A Point Velocity 92.2 cm/s Mitral E to A Ratio 0.8 LV E' Lateral Velocity 11.2 cm/s Mitral E to LV E' Lateral Ratio 6.8 LV E' Septal Velocity 7.6 cm/s Mitral E to LV E' Septal Ratio 10.1 FINDINGS Left Ventricle Normal left ventricular size, wall thickness, systolic function with no obvious regional wall motion abnormalities. The ejection fraction is visually estimated at 55-60%. Right Ventricle The right ventricle is normal in size and systolic function. Left Atrium The left atrium is normal by two-dimensional, color flow and Doppler imaging with no structural abnormalities, no thrombus formation present. Right Atrium The right atrium is normal by two-dimensional imaging, color flow and Doppler imaging with no structural abnormalities, no thrombus formation present. Atrial Septum The interatrial septum appears normal with no evidence of a shunt. Aorta The aorta is normal by two-dimensional, color flow and Doppler interrogation. Mitral Valve The mitral valve is normal by two-dimensional, color flow and Doppler interrogation. Trace mitral regurgitation. Aortic Valve Mild aortic leaflet sclerosis with normal valve excursion. Tricuspid Valve The tricuspid valve is normal by two-dimensional, color flow and Doppler interrogation. There is trace tricuspid valve regurgitation. Pulmonic Valve The pulmonic valve is not well visualized. There is no significant pulmonic valve regurgitation. Vessels The pulmonary artery appears normal. The inferior vena cava pulmonary and hepatic veins appear normal. Pericardium The pericardium is normal by two-dimensional imaging. There is no significant pericardial effusion. CONCLUSIONS Indication: Echo with bubble study. Standary PLAX and PSAX views could not be obtained. Negative bubble study Normal LV size and function. Approximate ejection fraction is 55-60%. The RV is normal in size and systolic function. Trace mitral and trace tricuspid regurgitation noted. Cinda Lerner (Electronically Signed) Final Date: 11 February 2025 12:05
--- NOTE | 2025-02-08 13:07 | PD.RESHP ---
Documentation for date of: 02/08/25 HPI History of Present Illness Chief complaint: Dysphagia History of present illness: 84-year-old male past medical history of recurrent TIA, gout, BPH, hyperlipidemia, CKD stage IIIa and umbilical hernia presenting to the ED on 02/08 with episode of dysphagia. Patient states that he was feeling worse this morning around 8 AM when suddenly he noticed that his speech was moderate. Patient's noted that the episode lasted roughly between 30 minutes to 1 hour at which point he was brought into the emergency room. Patient follows up with neurology outpatient and states that he has been worked up in the past for TIA episodes. He also states that he has been having some memory deficits mostly short-term memory. He also states that he has been having headache in the middle of his frontal area without any hearing or visual changes. Patient otherwise denies having any weakness, mobility issues, chest pain, shortness of breath or any other concerning cardiac symptoms. 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 Teleneurologist saw the patient and gave a NIH score of 2. CT of the head and head and neck CTA were negative for any acute findings. Labs are unremarkable for any pertinent findings Patient will be admitted for TIA/stroke rule out with in-house neurology consultation. Exam Vital Signs Temp Pulse Resp BP Pulse Ox O2 Del Method 99.0 F 55 L 20 141/76 H 97 Room Air 02/08/25 09:25 02/08/25 12:37 02/08/25 12:37 02/08/25 12:37 02/08/25 12:37 02/08/25 12:37 Narrative Exam Physical Exam: GENERAL: Awake, answering questions appropriately, appears stated age HEENT: NC/AT. Moist mucosa. PERRLA/EOMI. CARDIO: Heart RRR, no obvious murmurs, no JVD. PULM: No coughing or visible SOB. Lungs CTA B/L. GI: Abdomen soft, NT/ND, +BS. SKIN/MSK/EXT: No wounds/discoloration/rashes/edema/amputations. +Pedal pulses present B/L. NEURO: Oriented x3, cranial nerves II to XII grossly intact, pronator drift negative, muscle strength 5 out of 5 on both upper and lower extremities, sensations grossly intact, Moves extremities x4 Results: Labs 02/09/25 04:58 02/09/25 04:58 Labs: Short CBC 02/08/25 Range/Units 09:38 WBC 9.2 (3.8-10.6) Thou/mm3 Hgb 15.0 (13.5-16.0) g/dL Hct 44.0 (41.0-53.0) % Plt Count 206 D (140-440) Thou/mm3 BMP 02/08/25 09:38 Sodium 140 Potassium 4.3 Chloride 105 Carbon Dioxide 25.4 BUN 13 Creatinine 1.3 Glucose 101 Calcium 10.0 Cardiac Enzymes 02/08/25 Range/Units 09:38 Troponin I < 0.020 (0.0-0.045) ng/mL Liver Function 02/08/25 Range/Units 09:38 Total Bilirubin 0.6 (0.3-1.2) mg/dL AST 10 (0-34) U/L ALT 7 L (10-49) U/L Alkaline Phosphatase 88 (46-116) U/L Albumin 4.4 (3.4-4.8) gm/dL Quality Measures Quality Measures stroke Suspected type of Stroke: Unknown at this time Tenecteplase given: Reason(s) Tenecteplase not given: Stroke severity too mild (non-disabling) (likely TIA) not given Rehab services: PT evaluation ordered VTE Prophylaxis: pharmaceutical Antithrombotic by day 2:: ordered Statin ordered: >75 y/o moderate or high intensity dose Anticoagulation ordered for A-fib or flutter (current or hx): not indicated Advance care planning discussed with:: patient Medications Home Medications and Allergies Home Medications ?Medication ?Instructions ?Recorded ?Confirmed ?Type amlodipine 5 mg tablet 5 mg PO QDAY 12/16/17 02/09/25 History oxybutynin chloride 5 mg tablet 5 mg PO BID 12/16/17 02/09/25 History allopurinol 300 mg tablet 300 mg PO QDAY 07/30/18 02/09/25 History tamsulosin 0.4 mg capsule 0.4 mg PO QDAY 07/30/18 02/09/25 History finasteride 5 mg tablet (Proscar) 5 mg PO QDAY 12/20/18 02/09/25 History Allergies Allergy/AdvReac Type Severity Reaction Status Date / Time No Known Allergies Allergy Verified 02/08/25 09:26 Visit Medications Sodium Chloride (Ns) 1,000 mls @ 100 mls/hr IV Q10H HAILEY Stop: 03/10/25 09:44 Last Admin: 02/08/25 10:30 Dose: 100 mls/hr Nicardipine/Sodium Chloride (Cardene Ivpb) 20 mg in 200 mls @ 50 mls/hr IV .Q4H PRN; Protocol PRN Reason: Per Nicardipine Stroke Protocol Stop: 03/10/25 10:00 Labetalol HCl (Labetalol Inj 5 Mg/Ml Vial 20 Ml) 10 mg IVP [id number] PRN PRN Reason: SBP > 185 mmHg and/or DBP > 110 Labetalol HCl (Labetalol Inj 5 Mg/Ml Vial 20 Ml) 10 mg IVP [id number] PRN PRN Reason: SBP > 180 mmHg or DBP > 105 Discontinued Medications Aspirin (Aspirin 325 Mg Tablet) 325 mg PO X1 ONE Stop: 02/08/25 12:51 Last Admin: 02/08/25 13:01 Dose: 325 mg Tenecteplase (Tenecteplase Inj 50 Mg Vial) 21.3 mg 0.25 mg/kg (21.3 mg) IV X1 ONE Stop: 02/08/25 10:02 Last Admin: 02/08/25 10:26 Dose: Not Given Assessment & Plan Plan 84-year-old male past medical history of recurrent TIA, gout, BPH, hyperlipidemia, CKD stage IIIa and umbilical hernia presenting to the ED on 02/08 with episode of dysphagia will be admitted for TIA/stroke rule out with in-house neurology consultation. #Stroke rule out, TIA Patient has extensive history of TIAs in the past with multiple ED admissions As per HPI above, patient had episode of dysphagia which lasted around 30 minutes and has since subsided with some subjective residual symptoms On examination, patient is neurologic exam largely unremarkable Teleneurology was consulted in the ED and recommendations are highlighted in their note CT head and CTA of head and neck largely negative without any acute findings Plan: In-house neurology consulted, appreciate recommendations Will continue DAPT Atorvastatin 40 at bedtime Permissive hypertension, as needed labetalol if blood pressure greater than 185/110 Will follow-up on A1c, recent lipid panel is unremarkable Echo with bubble study Head of bed greater than 30, aspiration precautions Physical therapy and speech evaluation #Gout #BPH #Hyperlipidemia #CKD Stage IIIa Chronic medical conditions, nonpertinent to the following presentation Plan: Will restart home medications pending med rec Health Maintenance: Lines: PIV Diet: Cardiac, passed swallow screen Bowel: Senna GI prophylaxis: Not needed DVT prophylaxis: Heparin subcu Dispo: Pending neurology recommendations, MRI stroke protocol Code: Full Patient seen and assessed with attending Dr. Adilene Giordano, DO PGY-2 Internal Medicine - [facility]ME Attending Provider Attestation/Addendum Face to face evaluation was performed by me. I have personally seen and examined the patient. I discussed the assessment and plan with the entire medicine team. I reviewed available medical records, imaging studies, laboratory results. I agree with the above subjective data, objective findings, assessment and plan except as corrected by me or noted below TIA, Transient aphasia likely due to above Rule out CVA, Essential hypertension History of TIAs in the past Gout -Admit for stroke workup, patient is back to baseline he thinks this is another episode of TIA, neurology will be consulted permissive hypertension for next 24 hours since symptom onset. More than > 30 minutes spent on the encounter
[2025-02-08] MEDS: Magnesium Sulfate 4 GM Ivpb 4 GM/50 ML BAG IV (14:00)
[2025-02-08] MEDS: CLOPIDOGREL BISULFATE 75 MG TABLET PO (14:00)
--- NOTE | 2025-02-08 16:06 | PC.SS ---
Patient is an 84 year old male presenting to the hospital for stroke rule out. JEWELRY FINISHER met with patient at bedside role and reason was explained for visit. Patient confirmed demographic information and stated he lives at home with his . Patient stated that if he is unable to make medical decisions on his own he would like his to make them. Patient is retired, does not use any DME at home, retired, PCP is Dr. Garibay last appointment was a week ago, pharmacy of choice is [facility]. Patient stated that once he is medically clear he would like to return home and his will provide transportation. PCP: Dr. Garibay Decision maker: Nely Villagran D/C: Home
--- NOTE | 2025-02-08 17:21 | PC.NURSE ---
U/S at bedside performing Cardiac Echo.
[2025-02-08] MEDS: OXYBUTYNIN CHLOR 5 MG TABLET PO (20:27)
--- NOTE | 2025-02-08 22:21 | RESP.EEG ---
EEG has been completed and is ready for MD interpretation.
--- NOTE | 2025-02-08 23:02 | ESPR_ITS ---
Documentation for date of: 02/08/25 Subjective Subjective Interval history: Patient was seen at the bedside today without any new symptoms Exam - Neurology Vital Signs Temp Pulse Resp BP Pulse Ox O2 Del Method 97.2 F 58 L 16 152/66 H 98 Room Air 02/08/25 20:00 02/08/25 20:00 02/08/25 20:00 02/08/25 20:00 02/08/25 20:00 02/08/25 20:00 Narrative Exam GENERAL APPEARANCE: Well hydrated, well-nourished in no acute distress. HEENT: Normocephalic, atraumatic, extraocular movements intact. Pupils: Equal reacting to light and accommodation NECK: Supple, no JVD or bruits. CARDIOVASULAR: Heart: S1, S2 heard, regular without S3-S4 or murmur no rubs or gallops. LUNGS/CHEST: Clear to auscultation bilaterally. No rails, rhonchi, or wheezing. Normal inspection. ABDOMEN: Soft, nontender, with normal bowel sounds. No pulsatile masses. No rebound, rigidity, or guarding. Normal inspection and palpation. EXTREMITIES: Normal inspection and palpation. No edema, clubbing or cyanosis. SKIN: Warm and dry without rashes. Normal inspection. MUSCULOSKELETAL: No cervical, thoracic, lumbar or midline bony tenderness. Normal inspection. NEURO: Alert, awake and oriented x3. Cranial nerves: II through XII grossly intact. Speech and language: Normal with no dysarthria or dysphasia. Motor system: Tone and bulk: Normal: Strength: 5 out of 5 in all 4 extremities; No pronator drift noted. Deep tendon reflexes: 2+ bilaterally symmetrical. Plantar reflex: Downgoing bilaterally. Sensory system: Intact to all modalities of sensation bilaterally. Coordination: Intact to umtitw-dvmk-gbvyn and nkoz-oenj-ynme test bilaterally. No ataxia, no dysmetria, or dysdiadochokinesia noted. No intention tremors noted. Gait: Normal. Toe, heel, tandem walk all are normal. Romberg: Negative. No signs of meningeal irritation noted. PSYCHIATRIC: Normal mood and affect. Objective Labs 02/08/25 09:38 02/08/25 09:38 Labs: Laboratory Results - last 24 hr 02/08/25 02/08/25 09:38 12:43 WBC 9.2 RBC 4.60 Hgb 15.0 Hct 44.0 MCV 96 MCH 32.6 MCHC 34.1 RDW Std Deviation 44.3 H Plt Count 206 D Neut % (Auto) 77 Lymph % (Auto) 14 [place] % (Auto) 7 Eos % (Auto) 1 Baso % (Auto) 0 Neut # (Auto) 7.1 Lymph # (Auto) 1.3 [place] # (Auto) 0.6 Eos # (Auto) 0.1 Baso # (Auto) 0.0 Immature Gran # (Auto) 0.03 H Absolute Nucleated RBC 0.00 Immature Gran % 0 Nucleated RBC % 0 PT 11.1 INR 1.0 APTT 26.2 Sodium 140 Potassium 4.3 Chloride 105 Carbon Dioxide 25.4 Anion Gap 10 BUN 13 Creatinine 1.3 Estim Creat Clear Calc 46.5 L eGFR 55 L BUN/Creatinine Ratio 10 L Glucose 101 Calculated Osmolality 279 Calcium 10.0 Corrected Calcium 10.0 Magnesium 1.8 Total Bilirubin 0.6 AST 10 ALT 7 L Alkaline Phosphatase 88 Troponin I < 0.020 B-Natriuretic Peptide 21 Total Protein 6.1 Albumin 4.4 Globulin 1.7 L Albumin/Globulin Ratio 2.6 H Ur Collection Type Catheter Urine Color Yellow Urine Clarity Clear Urine pH 6.0 Ur Specific [place] 1.045 H Urine Protein Negative Urine Glucose (UA) Negative Urine Ketones Negative Urine Blood Negative Urine Nitrite Negative Urine Bilirubin Negative Urine Urobilinogen (Auto) Negative Ur Leukocyte Esterase Negative Urine RBC 1 Urine WBC < 1 Ur Squamous Epith Cells < 1 Urine Bacteria None Urine Opiates Screen Negative Urine Fentanyl Screen Negative Ur Barbiturates Screen Negative U Amphetamin/Meth Scrn Negative U Benzodiazepines Scrn Negative U Cocaine Metab Screen Negative U Marijuana (THC) Screen Negative Ethyl Alcohol < 3.0 Assessment & Plan Assessment and plan (1) Stroke: Status: Ruled-out (2) Hypertension: Status: Acute (3) Dyslipidemia: Status: Acute (4) Expressive aphasia: Status: Resolved Assessment and plan: Its TIA Additional Assessment & Plan Additional Plan: MRI brain: Showed no acute infarct MRA and CTA: no vascular abnormality noted Echocardiogram: done, report pending Continue with aspirin, plavix and statin, keep the blood pressure under control. However, he refused to take Statin because of what he read and heard about them.
[2025-02-09] VITALS: BP 134/64; PULSE 57; PULSE 61; RESP 13; TEMP 36.9; O2SAT 96
[2025-02-09 03:11] VITALS: BMI 28.5
[2025-02-09 04:00] VITALS: BP 128/87; PULSE 41; PULSE 58; RESP 18; TEMP 36.3; O2SAT 96
[2025-02-09 05:34] LABS: Basophils # (Auto) 0.0 Thou/mm3 (0.0-0.2); Basophils % (Auto) 1 % (0-2.5); Eosinophils # (Auto) 0.1 Thou/mm3 (0.0-0.5); Eosinophils % (Auto) 2 % (0-10); Hematocrit 42.8 % (41.0-53.0); Hemoglobin 14.3 g/dL (13.5-16.0); Immature Granulocytes Auto 0.03 Thou/mm3 (0.00-0.00); Lymphocytes # (Auto) 1.5 Thou/mm3 (1.0-4.8); Lymphocytes % (Auto) 17 % (10-50); Mean Corpuscular HGB Conc 33.4 g/dl (31.0-37.0); Mean Corpuscular Hemoglobin 32.1 pg (25.0-35.0); Mean Corpuscular Volume 96 fL (80-100); Monocytes # (Auto) 0.8 Thou/mm3 (0.0-0.8); Monocytes % (Auto) 9 % (0-12); Neutrophils # (Auto) 6.4 Thou/mm3 (1.8-7.7); Neutrophils % (Auto) 72 % (37-80); Nucleated Red Blood Cell # 0.00 Thou/mm3 (0.00-0.00); Nucleated Red Blood Cell % 0 /100 WBC (0); Platelet Count 183 Thou/mm3 (140-440); RDW Standard Deviation 44.9 fL (35.1-43.9); Red Blood Count 4.45 Miln/mm3 (4.50-5.90); White Blood Count 8.8 Thou/mm3 (3.8-10.6)
[2025-02-09 05:45] LABS: Glucose Estimated Average 100 mg/dL (80-131); Hemoglobin A1C 5.1 % Hgb (4.8-6.0)
[2025-02-09 06:17] LABS: Alanine Aminotransferase < 7 U/L (10-49); Albumin, Serum 3.8 gm/dL (3.4-4.8); Albumin/Globulin Ratio 2.4 (1.2-2.2); Alkaline Phosphatase 79 U/L (46-116); Anion Gap 10 (7-16); Aspartate Amino Transferase < 10 U/L (0-34); BUN/Creatinine Ratio 9 Ratio (12-20); Bilirubin,Total 0.6 mg/dL (0.3-1.2); Blood Urea Nitrogen 9 mg/dL (9-23); Calcium 9.0 mg/dL (8.3-10.6); Calcium (Corrected) 9.2 mg/dL (8.5-10.1); Carbon Dioxide 24.4 mMol/L (20.0-31.0); Chloride 108 mMol/L (98-107); Creatinine (Component) 1.0 mg/dL (0.6-1.3); Estimated Creatinine Clearance 60.5 mL/min (>60); Globulin 1.6 gm/dL (2.3-3.5); Glucose 89 mg/dL (74-106); Magnesium 2.2 mg/dL (1.6-2.6); Osmolality,Calculated 280 (275-295); Phosphorous 3.2 mg/dL (2.4-5.1); Potassium 4.2 mMol/L (3.4-5.1); Sodium 142 mMol/L (136-145); Total Protein 5.4 gm/dL (5.7-8.2); eGFR > 60 See Note
[2025-02-09 08:00] VITALS: BP 136/83; PULSE 65; PULSE 77; RESP 20; TEMP 36.3; O2SAT 96
[2025-02-09] MEDS: OXYBUTYNIN CHLOR 5 MG TABLET PO (09:01)
[2025-02-09] MEDS: CLOPIDOGREL BISULFATE 75 MG TABLET PO (09:01)
--- NOTE | 2025-02-09 09:10 | PC.NURSE ---
Ntified Dr. levin pt refusing senna and heparin this morning
--- NOTE | 2025-02-09 10:56 | ESDS_ITS ---
Planned Discharge Date 02/09/25 DS: Providers Provider Date of admission: 02/08/25 13:06 Primary care physician: Andrew Garibay MD Admitting Provider: Juan Head MD Attending Provider on Admission: Juan Head MD Consults: 02/08/25 09:35 Consult to Neurology / Tele-Neurology Routine Comment: Consulting Provider: [facility] 02/08/25 13:17 Referral Physical Therapy Routine Comment: Physician Instructions: Referral Speech Therapy Routine Comment: 02/08/25 13:26 Consult to Neurology / Tele-Neurology Routine Comment: Tia/stroke r.o Consulting Provider: Juan Teran Attending Provider on DC: Andrea Giordano MD Discharging Provider: Andrea Giordano MD DS: Diagnosis Problem List Completed Was Problem List Reviewed/Reconciled?: Yes Hospital Course Hospital Course Hospital course: 84-year-old male past medical history of recurrent TIA, gout, BPH, hyperlipidemia, CKD stage IIIa and umbilical hernia presenting to the ED on 02/08 with episode of aphasia which lasted somewhere between 15 to 30 minutes. Patient brought into the ED in which point stroke alert was initiated, teleneurology saw the patient and gave NIH score of 2. CT head and CTA of head and neck were negative for any acute findings. Patient was admitted for TIA/stroke rule out with in-house neurology consultation. Neurology saw the patient and recommended MRI of the brain which showed no acute infarct and recommendations were that the patient continue aspirin, Plavix and statin; however, patient initially refused taking statins, but later on was able to be convinced. Patient will be discharged upon returning back to baseline mental status without any aphasia. Patient will be discharged home with home health with the following strict instructions. Please continue taking Aspirin 81mg by mouth once a day and Plavix 75mg by mouth once a day for stroke/tia prevention Please take atorvastatin 40mg by mouth once a day at night - stop taking simvastatin Follow-up with your PCP and neurologist within 1 week after discharge Ask your PCP to follow-up on echocardiogram study If your symptoms worsen or if you develop new weakness, trouble talking, blurry vision, severe headache or chest pain - please come back to the ED immediately. Hospital Diagnosis: #TIA #Gout #BPH #Hyperlipidemia #CKD Stage IIIa Andrea Giordano, DO PGY-2 Internal Medicine - GME Status at Discharge Overall status at discharge: patient is progressing back to baseline Time Spent with Patient Time attestation: Total time spent providing and/or coordinating discharge services: 45 minutes Time spent: Greater than 30 minutes Home Health Home Health Referral Orders: 02/09/25 10:01 Home Health Referral Routine Reason For Exam: TIA, PT, nursing Home-Bound The patient must either because of illness or injury, need the aid of supportive devices such as crutches, canes, wheelchairs, and walkers; the use of special transportation; or the assistance of another person in order to leave their place of residence; OR have a condition such that leaving his or her home is medically contraindicated. In addition, the patient also meets the following criteria: patient is normally unable to leave the home and leaving home requires considerable taxing effort. Addendum to Home Health Certification Practitioner's Certification: I certify that the patient has been under my care in the hospital and the care of attending physician (see below). We had a zjga-wg-[id number] encounter on (see date below). My clinical findings indicate that the patient is home bound per the above criteria and the Home Health Services noted in these orders are medically necessary. The primary reason for the [id number] encounter is related to the fact that the patient requires home health services. 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 Wound Care: No IV Therapy: No RN Safety Evaluation: Yes RN to evaluate and create a plan of care that will produce positive outcomes. Palliative Treatment: No Palliative treatment and evaluate the need for hospice. Home Health Aide - Personal Care: No Home Health Aide to assist with any ADL's. Exam Vital Signs Temp Pulse Resp BP Pulse Ox O2 Del Method 97.3 F 65 20 136/83 H 96 Room Air 02/09/25 08:00 02/09/25 08:00 02/09/25 08:00 02/09/25 08:00 02/09/25 08:00 02/09/25 08:00 Narrative Exam Physical Exam: GENERAL: Awake, answering questions appropriately, appears stated age HEENT: NC/AT. Moist mucosa. PERRLA/EOMI. CARDIO: Heart RRR, no obvious murmurs, no JVD. PULM: No coughing or visible SOB. Lungs CTA B/L. GI: Abdomen soft, NT/ND, +BS. SKIN/MSK/EXT: No wounds/discoloration/rashes/edema/amputations. +Pedal pulses present B/L. NEURO: Oriented x3, cranial nerves II to XII grossly intact, pronator drift negative, muscle strength 5 out of 5 on both upper and lower extremities, sensations grossly intact, Moves extremities x4 Discharge Plan Plan Patient Disposition: Home w/HOME HEALTH Patient condition on transfer: Stable Care Plan Goals: Please continue taking Aspirin 81mg by mouth once a day and Plavix 75mg by mouth once a day for stroke/tia prevention Please take atorvastatin 40mg by mouth once a day at night - stop taking simvastatin Follow-up with your PCP and neurologist within 1 week after discharge Ask your PCP to follow-up on echocardiogram study If your symptoms worsen or if you develop new weakness, trouble talking, blurry vision, severe headache or chest pain - please come back to the ED immediately. Prescriptions/Referrals Prescriptions/Med Rec: New atorvastatin 40 mg tablet 40 mg PO HS 30 Days Qty: 30 0RF Continued finasteride [Proscar] 5 mg tablet 5 mg PO QDAY tamsulosin 0.4 mg Capsule 0.4 mg PO QDAY allopurinol 300 mg Tablet 300 mg PO QDAY amlodipine 5 mg Tablet 5 mg PO QDAY oxybutynin chloride 5 mg Tablet 5 mg PO BID cyclobenzaprine 5 mg tablet 5 mg PO BID PRN (Reason: muscle spasm) Qty: 10 0RF acetaminophen 500 mg capsule 1,000 mg PO Q6H PRN (Reason: pain) Qty: 30 0RF clopidogrel [Plavix] 75 mg Tablet 75 mg PO QDAY 30 Days Qty: 30 0RF aspirin [Adult Low Dose Aspirin] 81 mg tablet,delayed release (DR/EC) 81 mg PO HS 30 Days Qty: 30 0RF Discontinued simvastatin 40 mg Tablet 40 mg PO QPM Referrals: Andrew Garibay MD [Primary Care Provider, Family Practice] Patient/Caregiver Discharge Instructions Education Materials: What Is Ischemic Stroke?, What Is a TIA?, Risk Factors for Stroke Print Language: Colombian Stand Alone Forms: Jeny Award Info., Patient Portal Info Letter Discharge Order Discharge Orders: Discharge (Routine); Ordered 02/09/25 Ordered By: Andrea Giordano Quality Discharge Quality Measures VTE prophylaxis Attestestation MD Attestation Face to face evaluation was performed by me. I have personally seen and examined the patient. I discussed the assessment and plan with the entire medicine team. I reviewed available medical records, imaging studies, laboratory results. I agree with the above subjective data, objective findings, assessment and plan except as corrected by me or noted below TIA, Transient aphasia likely due to above Rule out CVA, Essential hypertension History of TIAs in the past Gout MRI negative for acute ischemic stroke, patient is refusing systemic anticoagulation for his recurrent TIAs as well as refusing statin therapy. Neurology was consulted recommendations were to discharge patient on aspirin and Plavix?his home regimen. More than > 30 minutes spent on the encounter
[2025-02-09 12:00] VITALS: BP 132/87; PULSE 61; PULSE 77; RESP 16; TEMP 36.6; O2SAT 95
[2025-02-09 14:34] VITALS: PULSE 51; RESP 18; RESP 97
--- NOTE | 2025-02-10 08:02 | PC.CC ---
Addendum entered by Peggy Tamayo RN 02/10/25 15:30: SOC set for 02/11, later declined HH services, referral cancelled Addendum entered by Peggy Tamayo RN 02/10/25 08:08: Patient booked with [facility], pending soc Original Note: Home health referral sent out to all agencies, no preference noted
== END 2025-02-09 16:25 | disposition home health service (06) | DRG 69 ==
LOC: SERX 12:39 → SERHOLD 13:50 → S2NX 18:21
PROVIDERS: Admitting Provider Internal Medicine; Emergency Provider Family Medicine; PCP Family Medicine; Visit Provider Internal Medicine
DX: G45.9 Transient cerebral ischemic attack, unspecified (principal); R47.01 Aphasia; M10.9 Gout, unspecified; N40.0 Benign prostatic hyperplasia without lower urinary tract symptoms; E78.5 Hyperlipidemia, unspecified; N18.31 Chronic kidney disease, stage 3a; R13.10 Dysphagia, unspecified; I12.9 Hypertensive chronic kidney disease with stage 1 through stage 4 chronic kidney disease, or unspecified chronic kidney disease; Z86.73 Personal history of transient ischemic attack (TIA), and cerebral infarction without residual deficits
CPT/HCPCS: 36415; 70450; 70496; 70498; 70544; 80053; 80307; 80320; 81001; 82274; 83036; 83735; 83880; 84100; 84484; 85025; 85610; 85730; 87077; 87086; 87186; 92523; 93005; 93306; 95816; 96360; 96361; 96365; 96366; 97162; 99284; A4649; J3475; J7030; Q9967; A9270; G0328; G0480

== ENCOUNTER 2025-03-22 10:55 | Day surgery (SDC) | payer MEDICARE, SELFPAY ==
[2025-03-21 09:33] VITALS: BMI 28.2
[2025-03-21 10:44] LABS: Basophils # (Auto) 0.1 Thou/mm3 (0.0-0.2); Basophils % (Auto) 1 % (0-2.5); Eosinophils # (Auto) 0.1 Thou/mm3 (0.0-0.5); Eosinophils % (Auto) 1 % (0-10); Hematocrit 44.1 % (41.0-53.0); Hemoglobin 15.0 g/dL (13.5-16.0); Immature Granulocytes Auto 0.04 Thou/mm3 (0.00-0.00); Lymphocytes # (Auto) 1.5 Thou/mm3 (1.0-4.8); Lymphocytes % (Auto) 16 % (10-50); Mean Corpuscular HGB Conc 34.0 g/dl (31.0-37.0); Mean Corpuscular Hemoglobin 32.0 pg (25.0-35.0); Mean Corpuscular Volume 94 fL (80-100); Monocytes # (Auto) 0.7 Thou/mm3 (0.0-0.8); Monocytes % (Auto) 8 % (0-12); Neutrophils # (Auto) 6.8 Thou/mm3 (1.8-7.7); Neutrophils % (Auto) 74 % (37-80); Nucleated Red Blood Cell # 0.00 Thou/mm3 (0.00-0.00); Nucleated Red Blood Cell % 0 /100 WBC (0); Platelet Count 179 Thou/mm3 (140-440); RDW Standard Deviation 43.7 fL (35.1-43.9); Red Blood Count 4.69 Miln/mm3 (4.50-5.90); White Blood Count 9.2 Thou/mm3 (3.8-10.6)
[2025-03-21 10:51] LABS: INR 1.0 (0.9-1.3); Partial Thromboplastin Time 26.1 Seconds (22.0-36.0); Prothrombin Time 10.5 Seconds (9.0-12.2)
[2025-03-21 11:07] LABS: Alanine Aminotransferase 13 U/L (10-49); Albumin, Serum 4.5 gm/dL (3.4-4.8); Albumin/Globulin Ratio 2.5 (1.2-2.2); Alkaline Phosphatase 98 U/L (46-116); Anion Gap 9 (7-16); Aspartate Amino Transferase 16 U/L (0-34); BUN/Creatinine Ratio 15 Ratio (12-20); Bilirubin,Total 0.5 mg/dL (0.3-1.2); Blood Urea Nitrogen 18 mg/dL (9-23); Calcium 9.6 mg/dL (8.3-10.6); Calcium (Corrected) 9.6 mg/dL (8.5-10.1); Carbon Dioxide 27.1 mMol/L (20.0-31.0); Chloride 106 mMol/L (98-107); Creatinine (Component) 1.2 mg/dL (0.6-1.3); Estimated Creatinine Clearance 53.3 mL/min (>60); Globulin 1.8 gm/dL (2.3-3.5); Glucose 101 mg/dL (74-106); Osmolality,Calculated 285 (275-295); Potassium 4.0 mMol/L (3.4-5.1); Sodium 142 mMol/L (136-145); Total Protein 6.3 gm/dL (5.7-8.2); eGFR > 60 See Note
[2025-03-22] VITALS (8 sets, daily range): BP systolic 118–134; BP diastolic 59–96; PULSE 54–70; RESP 16–20; TEMP 36.1–36.6; O2SAT 95–100; BMI 27.2
[2025-03-22] MEDS: RINGERS LACTATED 1000 ML 1,000 ML 20 ML IV (11:42)
--- NOTE | 2025-03-22 14:33 | SUR.PHASEI ---
1433: Pt. arrived with oral airway in place, vitals stable, breathing unlabored, no complaint of pain or nausea, dressing to left lower ABD CDI, no active bleed noted, report received from MD Raymond and Stacey ZAMBRANO.
--- NOTE | 2025-03-22 14:44 | PD.SUROPNT ---
Date of Procedure 03/22/25 Pre Op Diagnosis Symptomatic left inguinal hernia extending into the scrotum Post Op Diagnosis Same with both indirect and direct component Procedure Repair of the left direct and indirect hernia with high ligation of the sac and placement of 2 x 4 Marlex mesh to create the floor of the inguinal canal Findings Patient was found to have large sac with no contents mouth of the sac was very wide. The floor of the inguinal canal was completely attenuated and therefore reconstruction was required Procedure Description Out the patient was brought to the operating room endotracheal anesthesia was given. Lower abdomen was prepped with ChloraPrep solution and draped in a sterile manner. Timeout was performed. Then standard left groin incision was made and external oblique was reached. This was incised the cord structures were encircled around a Donn drain. Patient was found to have a huge indirect inguinal hernia with a large sac and this was from the cord structures and then suture-ligated at the internal ring and doubly with 2-0 chromic. Then I palpated the inguinal floor which was extremely weak and there was no strong transversalis fascia. Therefore I placed a 2 x 4 Marlex mesh and attached it to create the floor about the transversalis fascia using 2-0 Prolene for the shelving edge inferiorly and internal oblique superiorly. At the end the mesh was divided and encircled the cord structures and then tucked underneath the external oblique. 1 stitch of 2-0 Prolene was used laterally. The repair appeared sound. The external oblique was closed with a 2-0 Vicryl. Subcutaneous tissue was closed with 3-0 plain and skin was closed with 4-0 Monocryl subcuticular stitch. Dressing was applied with Adaptic and 4 x 4 gauze. Patient tolerated the procedure well. Anesthesia [employer] Implants comments: 2 x 4 Marlex mesh for creation of the floor of the inguinal canal Pathology / specimen None IVF Infused 1,000 Estimated Blood Loss 40 Surgeon Amado Forman MD Surgical Staff Operation Date: 03/22/25 13:00 Case Staff Anesthesiologist: Jonathan Raymond
--- NOTE | 2025-03-22 15:43 | SUR.PHASEII ---
1543: Pt. AAOx4, vitals stable, breathing unlabored, no complaint of pain or nausea, dressing to left lower ABD CDI, no active bleed noted, pt. tolerated sips of water well, pt. ambulated to wheelchair with steady gait and no assist, no complications. Gave discharge instructions to the pt. and his ride, both verbalized understanding and had no further questions. Pt. left with all personal belongings.
== END 2025-03-22 15:43 | disposition home or self-care (01) ==
PROVIDERS: PCP Family Medicine; Referring Provider Surgery; Visit Provider Surgery
PROC: (CPT 49505; principal; 2025-03-22 12:45)
DX: K40.90 Unilateral inguinal hernia, without obstruction or gangrene, not specified as recurrent (principal); Z86.73 Personal history of transient ischemic attack (TIA), and cerebral infarction without residual deficits; Z79.02 Long term (current) use of antithrombotics/antiplatelets; I10 Essential (primary) hypertension; Z79.899 Other long term (current) drug therapy
CPT/HCPCS: 49505; 36415; 80053; 85025; 85610; 85730; A4649; C1781; J0131; J0461; J2250; J2704; J3010; J3490; J7120